=== PATIENT | male | born 1985 | race African-American/Black ===

== ENCOUNTER 2020-01-21 11:02 | Emergency (ER) | payer SELFPAY ==
[2020-01-21] MEDS ORDERED: IBUPROFEN 400 MG TAB ONE (12:10)
[2020-01-21] MEDS ORDERED: IBUPROFEN 200 MG TAB PO ONE (12:11)
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
--- NOTE | 2020-01-21 12:23 | RAD REPORT ---
EXAM DESCRIPTION: RAD - Knee Left 3 View - 01/21/2020 12:12 pm CLINICAL HISTORY: PAIN COMPARISON: No comparisons FINDINGS: No fracture, dislocation or periosteal reaction.No joint effusion seen. No joint space brandon rowing. No soft tissue abnormality. IMPRESSION: Negative left knee. Clinical concerns for internal derangement or occult bony injury could be further assessed with MR im aging.
--- NOTE | 2020-01-21 12:24 | RAD REPORT ---
EXAM DESCRIPTION: RAD - Hand Right 3 View - 01/21/2020 12:12 pm CLINICAL HISTORY: middle finger, trauma, pain COMPARISON: No comparisonsNone. FINDINGS: No fracture is identified. There is no dislocation or periosteal reaction noted. Soft tis tatyana swelling is present around the third PIP joint. No foreign body in the soft tissues. IMPRESSION: Soft tissue swelling around the right third finger PIP joint. No fracture.
[2020-01-21 12:42] VITALS: O2SAT 100
[2020-01-21 12:43] VITALS: TEMP 98
[2020-01-21 13:14] VITALS: BP 123/77
== END 2020-01-21 12:33 | disposition home or self-care (01) ==
LOC: ER 11:02
DX: S80.02XA Contusion of left knee, initial encounter (principal); S63.612A Unspecified sprain of right middle finger, initial encounter; Y35.891A Legal intervention involving other specified means, law enforcement official injured, initial encounter; Y93.9 Activity, unspecified; Y92.019 Unspecified place in single-family (private) house as the place of occurrence of the external cause; W03.XXXA Other fall on same level due to collision with another person, initial encounter; Z88.1 Allergy status to other antibiotic agents
CPT/HCPCS: 99284